=== PATIENT | male | born 1960 | race Hispanic/Latino ===

== ENCOUNTER 2024-08-22 12:06 | Emergency (ER) | payer OTHER ==
[2024-08-22] MEDS ORDERED: CIPOTIC AS (12:54)
[2024-08-22] MEDS ORDERED: AMOX1TAB16 PO (12:54)
[2024-08-22] MEDS: cefTRIAXone 1G VIAL IM ONE (13:31)
[2024-08-22] MEDS: dexaMETHasone SOD PHOSPHATE 4 MG/ML 1ML VIAL IM ONE (13:31)
[2024-08-22] MEDS: ketOROlac 15MG/ML VIAL (15MG/ML) IM ONE (13:32)
[2024-08-22] MEDS: CIPROFLOXACIN HCL 0.2%/HYDROCORT 1% 10 ML OTIC SUSP AS ONE (13:32)
[2024-08-22 13:55] VITALS: BP 140/90; PULSE 65; RESP 18; TEMP 98.9; O2SAT 100
== END 2024-08-22 13:56 | disposition home or self-care (01) ==
LOC: EDH 12:06
DX: H66.92 Otitis media, unspecified, left ear (principal); H60.92 Unspecified otitis externa, left ear
CPT/HCPCS: 99284; 96372 ×3; J1100; J0696; J1885